=== PATIENT | male | born 1985 | race African-American/Black ===

== ENCOUNTER 2018-08-28 16:55 | Emergency (ER) | payer OTHER ==
[~2018-08-28] VITALS: Ht 190.5 cm; Wt 88.5 kg
[2018-08-28] MEDS ORDERED: CEPACOL SORE T1 EAC8 PO (19:15)
[2018-08-28] MEDS ORDERED: TRAMADOL 50 MG50 MG PO (19:15)
[2018-08-28] MEDS ORDERED: MEDROLDOSEPACK PO (19:15)
[2018-08-28 20:06] VITALS: BP 131/65
== END 2018-08-28 20:00 | disposition home or self-care (01) ==
LOC: ER 16:55
DX: E86.0 Dehydration (principal); J02.0 Streptococcal pharyngitis; J45.909 Unspecified asthma, uncomplicated